=== PATIENT | male | born 1950 | race Caucasian/White ===

== ENCOUNTER → 2018-06-28 09:06 | Outpatient (CLI) | payer MEDICARE, SELFPAY ==
--- NOTE | 2018-06-28 09:17 | XR_ITS ---
XR chest 2V HISTORY: ITS.REASON: COUGH ORDERING PHYSICIAN: Roshan Everett MD PATIENT AGE: 68 years COMPARISON: 06/28/2018 FINDINGS: The cardiomediastinal silhouette and pulmonary vascularity are within normal limits. The left hemidiaphragm is slightly elevated. There is patchy density in the left lung base which could be due to atelectasis or infiltrate. The remaining lungs are clear. There are degenerative changes in the thoracic spine. IMPRESSION: Left basilar atelectasis versus patchy infiltrate with slightly elevated left hemidiaphragm
== END ==
PROVIDERS: PCP Family Medicine; Visit Provider Family Medicine
DX: R05 Cough (principal)
CPT/HCPCS: 71046

== ENCOUNTER → 2018-10-29 07:21 | Outpatient (CLI) | payer MEDICARE, SELFPAY ==
--- NOTE | 2018-10-29 07:28 | NM_ITS ---
SPECT MYOCARDIAL PERFUSION SCAN, REST AND STRESS: EXERCISE STRESS: [facility] REVIEW QGS EF AND WALL MOTION EVALUATION: QPS - PERFUSION EVALUATION: HISTORY: Chest pain, SOB, HTN PROCEDURE: Rest imaging performed after administration of10.76 millicuries Tc MIBI. Dose administered at7:40 a.m., with imaging thereafter. Stress imaging was then performed following7 minutes 15 seconds of exercise stress. The patient achieved a heart [id number] with projected heart rate of128 . Resting BP151/82 with stress 185/80. At maximum exercise stress,32.8 millicuries Tc MIBI administered at9:00 a.m. with [id number] minutes thereafter. FINDINGS: Perfusion Evaluation: The single slice spect images as well as the [facility] bull's-eye data summary were reviewed. Wall Motion and Ejection Fraction Evaluation: Gated SPECT review and analysis used to evaluate these features. There is a 58 % left ventricular ejection fraction. There seems to be good wall motion Stress images reveal decreased activity in the mid anterior apical wall septum and inferior wall. Is also decreased activity in a portion of the lateral wall. Rest images reveal no significant change. Gated images calculated ejection fraction of 58% with normal wall motion IMPRESSION: Clinical correlation is advised. There are multiple defects none of which appear to be reversible. I would consider this high risk abnormal based on the multiple perfusion defects suggesting multivessel coronary artery disease. Normal ejection fraction normal wall motion
--- NOTE | 2018-10-29 07:49 | HMH.ITSHM ---
Current Home Medications as stated by this patient Bacilio Downey or sales representative health insurance. []AMLODIPINE FENOFIBRATE ATORVASTATIN MELOXICAM BISOPROLOL
== END ==
PROVIDERS: PCP Family Medicine; Visit Provider Family Medicine
DX: I20.8 Other forms of angina pectoris (principal); E78.2 Mixed hyperlipidemia; I10 Essential (primary) hypertension
CPT/HCPCS: 78452; 93017; A9502

== ENCOUNTER → 2019-02-15 14:00 | Outpatient (CLI) | payer MEDICARE, SELFPAY ==
--- NOTE | 2019-02-15 14:09 | XR_ITS ---
XR chest 2V HISTORY: Cough for 2 weeks ITS.REASON: COUGH ORDERING PHYSICIAN: Roshan Everett MD PATIENT AGE: 68 years Technique: PA and lateral chest COMPARISON: 2 view chest 05/07/2010 and October 2007 FINDINGS:.. Compared to previous CXR study there is increased density at the left base is mainly reflects atelectasis and linear scarring and is associated with slight elevation left hemidiaphragm, biopsy suspect of a subtle additional superimposed infiltrate here eccentric in the markings at the left infrahilar region and towards the medial left lung base.. . There is slight additional hazy appearance at the medial right base compared to the prior study. Suspect for a subtle current wispy infiltrate at right lower lobe. The heart is normal to upper normal size. Progressive ectasia and tortuosity of the descending aorta. May reflect history of hypertension?. Minimal calcified aortic knob. Superior mediastinum unremarkable. Chest wall intact. Hypertrophic changes T spine stable. No pleural effusion. No CHF no vascular congestion. IMPRESSION 1. Interval scarring and atelectasis at left base with elevation left hemidiaphragm 2. However I'm suspect there may be a minimal superimposed infiltrate left base . Clinical correlation required. 3. Also note subtle, slightly more hazy appearance at medial right base versus prior CXR-. Question minimal wispy infiltrate RLL as well
== END ==
PROVIDERS: PCP Family Medicine; Visit Provider Family Medicine
DX: R05 Cough (principal)
CPT/HCPCS: 71046

== ENCOUNTER → 2019-12-17 11:06 | Outpatient (CLI) | payer MEDICARE, SELFPAY ==
[2019-12-17 13:04] LABS: Prostate Specific Ag Screen < 0.1 ng/mL (0.0-4.0)
== END ==
PROVIDERS: Visit Provider Urology
DX: R97.20 Elevated prostate specific antigen [PSA] (principal); Z12.5 Encounter for screening for malignant neoplasm of prostate
CPT/HCPCS: 36415; G0103

== ENCOUNTER → 2020-07-06 14:09 | Outpatient (CLI) | payer MEDICARE, SELFPAY ==
--- NOTE | 2020-07-06 14:11 | CA_ITS ---
APPROVED REPORT EXAM: Comprehensive 2D, Doppler, and color-flow Echocardiogram Armoring Machine Operator: Genesis Andrade CRT Ht: 6 ft 2 in Wt: 264lbs BSA: 2.45 BP: 142/80 mmHg Indications: Chest Pain, Shortness of Breath, Hyperlipidemia, Hypertension/HDD, myocardial bridge 2D Dimensions LVOT 2.20 cm (M/F) 1.5-2.5 M-Mode Dimensions RVDd 2.96 cm (0.9-2.6) LVDd 5.04 cm (3.5-5.7) LVDs 3.53 cm (3.5-5.7) IVSd 2.20 cm (0.6-1.1) PWd 1.02 cm (0.6-1.1) EF (Teich) 56.90% FS 30.00% EDV (Teich) 120.50 mL ESV (Teich) 51.90 mL LV Diastology E/A Ratio 0.75 Mitral Valve MV A Velocity 70.00 (40-130 cm/s) Left Ventricle Left atrium is mildly enlarged, left ventricle is normal size, mild concentric left ventricular hypertrophy, visually estimated ejection fraction 55% with no regional wall motion abnormality, grade 1 diastolic dysfunction seen without tissue Doppler evidence of raise left atrial pressure. Right Ventricle Right atrium and right ventricular mildly enlarged with normal contractility. Aortic Valve Aortic valve is minimally thickened and fibrosed, there is no aortic stenosis or aortic insufficiency. Mitral Valve Mitral valve is grossly normal, there is mild mitral regurgitation. Tricuspid Valve Tricuspid valve is grossly normal, there is mild tricuspid regurgitation, tricuspid regurgitation jet velocity is inadequate for calculation of the right ventricular systolic pressure. Pulmonic Valve Pulmonic valve is poorly visualized. Great Vessels Aortic root is normal size. Pericardium No significant pericardial effusion noted. Conclusion 1. Mild biatrial enlargement, normal left ventricular size, mild concentric left ventricular hypertrophy, visually estimated ejection fraction 55% with no regional wall motion abnormality, grade 1 diastolic dysfunction seen without tissue Doppler evidence of raise left atrial pressure. 2. Mildly enlarged right ventricle with normal contractility. 3. Mild mitral and tricuspid regurgitation. 4. No significant pericardial effusion noted. Electronically signed by : Horacio Ruano, 07/06/2020 19:11:47
== END ==
PROVIDERS: PCP Family Medicine; Visit Provider Nurse Practitioner Family
DX: R06.00 Dyspnea, unspecified (principal)
CPT/HCPCS: 93306

== ENCOUNTER → 2021-03-29 08:57 | Outpatient (CLI) | payer MEDICARE, SELFPAY ==
[2021-03-29 10:52] LABS: Prostate Specific Ag, Diagnost 0.094 ng/ml (0.0-4.0)
== END ==
PROVIDERS: Visit Provider Urology
DX: R97.20 Elevated prostate specific antigen [PSA] (principal)
CPT/HCPCS: 36415; 84153

== ENCOUNTER → 2022-02-15 12:06 | Outpatient (CLI) | payer MEDICARE, SELFPAY ==
--- NOTE | 2022-02-15 12:13 | XR_ITS ---
FINAL REPORT CLINICAL HISTORY: ACUTE PAIN OF RIGHT FOOT FINDINGS: RIGHT FOOT Three views demonstrate no acute fracture or dislocation. There are mild and moderate degenerative changes. Calcaneal spurs are identified. There are calcifications in the region of the distal Achilles tendon and posterior plantar aponeurosis. IMPRESSION: Degenerative changes as above. Calcification in the region of the distal Achilles tendon and posterior plantar aponeurosis. Reviewed, Interpreted and Dictated by Renaldo Christie III, MD Transcribed by Rosita Rivas Authenticated by Renaldo Christie III, MD on 02/15/2022 01:53:[address] [facility]
== END ==
PROVIDERS: PCP Family Medicine; Visit Provider Family Medicine
DX: M79.671 Pain in right foot (principal)
CPT/HCPCS: 73630

== ENCOUNTER 2024-05-29 09:57 | Outpatient (CLI) | payer MEDICARE, SELFPAY ==
[2024-05-29 10:33] LABS: Basophils # 0.1 K/mm3 (0-0.2); Basophils % 1.7 % (0.1-2.0); Eosinophils # 0.2 K/mm3 (0.0-0.4); Eosinophils % 5.5 % (0.1-12.0); Hematocrit 45.4 % (42.0-52.0); Hemoglobin 15.1 g/dL (14.1-18.0); Lymphocytes # 0.9 K/mm3 (0.7-4.5); Lymphocytes % 24.3 % (10-50); Mean Corpuscular HGB Conc 33.3 g/dL (31.8-35.4); Mean Corpuscular Hemoglobin 30.5 pg (27.0-31.2); Mean Corpuscular Volume 91.8 fl (80-94); Mean Platelet Volume 7.9 fl (7.4-10.4); Monocytes # 0.3 K/mm3 (0.1-1.0); Monocytes % 8.6 % (1.7-9.3); Neutrophils # 2.1 K/mm3 (1.8-7.8); Neutrophils % 59.9 % (37.0-80.0); Platelet Count 196 K/mm3 (142-424); Red Blood Count 4.94 M/mm3 (4.60-6.20); Red Cell Distribution Width 14.4 % (11.5-17.5); White Blood Count 3.5 K/mm3 (4.8-10.8)
[2024-05-29 11:06] LABS: Alanine Aminotransferase 35 U/L (12-78); Albumin Level 3.8 g/dl (3.5-5.0); Alkaline Phosphatase 81 U/L (38-126); Anion Gap 8.3 mEq/L (5-15); Aspartate Amino Transferase 36 U/L (17-59); Bilirubin,Indirect 0.7 mg/dL (0.0-0.9); Bilirubin,Total 0.7 mg/dl (0.2-1.3); Bilirubin,Unconjugated 0.7 mg/dL (0.0-1.1); Blood Urea Nitrogen 17 mg/dl (9-20); Calcium 9.1 mg/dl (8.4-10.2); Carbon Dioxide 26 mmol/L (22.0-30.0); Chloride 110 mmol/L (98-107); Chol/HDL Ratio 4.7 (1-3.5); Cholesterol 140 mg/dl (140-200); Estimated Glomerular Filt Rate 94 ml/min (>60); GFR (African American) 114 ML/MIN (>60); Glucose 90 mg/dl (74-100); HDL Cholesterol 30 mg/dl (40-60); Magnesium 2.2 mg/dl (1.6-2.3); Potassium 4.3 mmoL/L (3.5-5.1); Sodium 140 mmol/L (136-145); Total Protein,Serum 6.4 g/dl (6.3-8.2); Triglycerides 316 mg/dl (30-150); VLDL Cholesterol 63 mg/dL (0-40)
[2024-05-29 11:21] LABS: Free T4 (Free Thyroxine) 1.01 ng/dl (0.78-2.19)
[2024-05-29 11:38] LABS: Prostate Specific Ag Screen < 0.1 ng/ml (0.0-4.0); Thyroid Stimulating Hormone 2.35 uIU/mL (0.465-4.68)
== END 2024-05-29 23:59 | disposition home or self-care (01) ==
LOC: LAB 09:59
PROVIDERS: PCP Family Medicine; Visit Provider Nurse Practitioner Family
DX: I51.89 Other ill-defined heart diseases; I10 Essential (primary) hypertension; R06.00 Dyspnea, unspecified; E78.2 Mixed hyperlipidemia; R60.9 Edema, unspecified; Q24.5 Malformation of coronary vessels; I34.0 Nonrheumatic mitral (valve) insufficiency; Z12.5 Encounter for screening for malignant neoplasm of prostate
CPT/HCPCS: 36415; 80048; 80061; 80076; 83735; 84439; 84443; 85025; G0103

== ENCOUNTER 2024-06-04 07:24 | Outpatient (CLI) | payer MEDICARE, SELFPAY ==
--- NOTE | 2024-06-04 07:24 | NM_ITS ---
APPROVED REPORT Exam: Nuclear Stress Test Indication: SOB, HTN, High cholesterol Patient Location: Outpatient Stress Tech: Alissa Pandey [place] Tech:Erika Chance, ARRT, RT (R)(N) Ht: 6 ft 2 in Wt: 260 lbs HR: 59 bpm BP: 142/83 mmHg BSA: 2.43 m2 Rhythm: NSR TID: 1.12 BMI: 33.3 History: SOB, HTN, High cholesterol Procedure: Patient exercised on Martin protocol 7:57 minutes and sec, resting heart rate 59 bpm, resting blood pressure 142/83 mmHg, with exercise maximum heart rate achived was 124 bpm which is 86 % of the maximum predicted heart rate and blood pressure was 178/84 mmHg. Test was stopped due to SOB. Patient denied any complaint of chest pain. Patient has average exercise capacity, achieved 8.8 METs of workload on treadmill, the blood pressure response to exercise was normal. Cardiac Stress and Resting SPECT Images: Cardiac Stress and Resting SPECT images were obtained using technetium 99m Myoview 31.4 mCi stress and 10.61 mCi at rest. Raw images demonstrate significant diaphragmatic overlap with the inferior borders of the LV wall. The patient could not lie on his abdomen. Therefore, prone stress imaging could not be performed. This may affect the diagnostic interpretation of the study findings. Resting and stress imaging in supine positions demonstrate no fixed or reversible perfusion defects. Gated imaging demonstrates normal global and regional LV systolic function. LVEF is calculated at 56%. Conclusion: No fixed or reversible perfusion defects. Gated imaging demonstrates normal global and regional LV systolic function. LVEF is calculated at 56%. Electronically signed by : Catherine Pacheco MD 06/04/2024 12:35:23
--- NOTE | 2024-06-04 07:43 | CA_ITS ---
APPROVED REPORT EXAM: Comprehensive 2D, Doppler, and color-flow Echocardiogram Plug And Mold Finisher: LAURA Martienz, RVS Ht: 6 ft 2 in Wt: 270lbs BSA: 2.47 BP: 129/71 mmHg Indications: Dyspnea, Myocardial bridge, Tachycardia, HTN, HLD, VALENTINE Echo Enhancing Agent Comments: TDS due to body habitus 2D Dimensions IVSd 1.12 cm LVEF (Visual) 68.40 % PWd 1.34 cm LVEF ([facility]) 60.10 % LVDd 5.30 cm LV Volume 124.30 mL LVDs 3.26 cm LV Volume Index 50.783875 mL/m2 M: 34 - 74 Aortic Root 3.20 cm LA Volume 79.80 mL Left Atrium 3.78 cm LA Volume Index 32.291112 mL/m2 (M/F) 16-34 RVID Base (AP4) 4.17 cm (M/F) 2.5-4.1 EF AP4 57.90 % LVOT 2.06 cm (M/F) 1.5-2.5 EF AP2 62.1 % EF BP 60.1 % GL Strain -21.3 % M-Mode Dimensions LVDd 5.30 cm (3.5-5.7) Ao Diam 3.70 cm (2.0-3.7) LVDs 4.06 cm (3.5-5.7) IVSd 1.12 cm (0.6-1.1) PWd 1.34 cm (0.6-1.1) EF (Teich) 50.80% EPSs 0.23 cm FS 30.30% EDV (Teich) 147.40 mL TAPSE 2.60 (<1.7) ESV (Teich) 72.50 mL LV Diastology E Decel Time 236 (160-240 msec) E/A Ratio 1.12 MED E' 5.6 (>= 7 cm/sec) MED A' 10.30 cm/s E'/MED E' Ratio 12.36 (<= 14) LAT E' 8.3 (>= 10 cm/sec) LAT A' 15.30 cm/s E/LAT E' Ratio 8.34 (<= 14) Aortic Valve LVOT Max 124.0 (70-110 cm/s) HEMA Index 1.31 cm2/m2 LVOT VTI 28.10 cm AoV Peak Mike. 145.0 (50-130 cm/s) AO Mean GR. 4.20 (<5 mmHg) AO VTI 29.0 (18-25 cm) HEMA (VTI) 3.23 (2.5-4.5 cm2) Mitral Valve MV E Max Mike. 69.0 (40-130 cm/s) MV A Velocity 62.0 (40-130 cm/s) E/A Ratio 1.12 MV Decel. Time 236 (160-240 ms) Tricuspid Valve TR P. Velocity 268.00 cm/s RAP Estimate 10.00 mmHg RVSP 38.70 mmHg Left Ventricle The left ventricle is normal size. The left ventricular systolic function is normal. The left ventricular ejection fraction is within the normal range. There is increased LV wall thickness. There is normal LV segmental wall motion. The left ventricular diastolic function is normal. LVEF is 55%. Right Ventricle Right ventricle is mildly dilated. The right ventricular systolic function is normal. Atria Left atrium is mildly dilated. Right atrium is mildly dilated. There is no Doppler evidence of interatrial shunt. Aortic Valve The aortic valve is mildly thickened. There is no aortic valvular stenosis. Trace aortic regurgitation. Mitral Valve Mild mitral annular calcification. The mitral valve is normal in structure. No evidence of mitral valve stenosis. Trace mitral regurgitation. Tricuspid Valve The tricuspid valve leaflets are thin and pliable. Mild tricuspid regurgitation. RVSP is 20-25 mmHg. Pulmonic Valve The pulmonary valve is normal in structure. Trace pulmonic regurgitation. Great Vessels The aortic root is normal in size. The ascending aorta is not well-visualized. IVC is normal in size and collapses >50% with inspiration. Pericardium There is no pericardial effusion. Other Information Study Quality: Fair Conclusion Normal biventricular systolic function. Mild RV dilation. Mild TR. Electronically signed by : Catherine Pacheco MD 06/04/2024 13:32:30
--- NOTE | 2024-06-04 09:41 | CA_ITS ---
APPROVED REPORT Exam: Exercise Treadmill Technologist: Alissa Pandey Ht: 6 ft 2 in Wt: 269 lbs BSA: 2.47 m2 HR: 55 bpm BP: 142/83 mmHg Indications: Dyspnea, Edema Medical History Medications: Lipitor,,,,, Norvasc,,,,, MeLOXICAM,,,,, BisOPROLOL,,,,, Nitroglycerin,,,,, Stress Test Details Test: Manual Treadmill HR Resting HR: 59 bpm Max Heart Rate (APMHR): 145 bpm Max HR Achieved: 124 bpm Target HR (85% APMHR): 123 bpm % of APMHR: 86 Recovery HR: 77 bpm HR response to stress: Normal HR response to stress BP Resting BP: 142.0/83.0 mmHg Max BP: 178.0/84.0 mmHg Recovery BP: 168.0/85.0 mmHg BP response to stress: Normal blood pressure response to stress. ECG Resting ECG: Sinus bradycardia Stress EC.[address] depression Arrhythmia: None Recovery ECG: Return to baseline within 3 minutes of recovery Clinical Exercise duration: 07:57 min Highest Stage Achieved: Exercise capacity: 8.8 METs Overall Exercise Capacity for Age: Average Stress ECG Conclusion The patient was able to exercise for a total of 7 minutes, 57 seconds. He achieved a total of 8.8 METS. He has average exercise capacity compared to age and sex matched peers. Symptoms: Dyspnea Arrhythmias/Ectopy: None ST-T Changes: 0.[address] depression Conclusion: Average exercise capacity. Normal EKG response to exercise. Myoview images reported separately. Test Summary REST . . . . . . . Sitting REST . . . . . . . Standing REST 05:33 0.0 0.0 59 . 142/ 83 . . Stage 1 01:00 10.0 1.7 82 . . . . Stage 1 02:00 10.0 1.7 90 . . . . Stage 1 03:00 10.0 1.7 91 . 150/ 86 . . Stage 2 01:00 12.0 2.5 99 . . . . Stage 2 02:00 12.0 2.5 103 . . . . Stage 2 . . . . . . . Myoview Injected Stage 2 03:00 12.0 2.5 93 . . . . Stage 3 . . . . . . . Stage held Stage 3 . . . . . . . Protocol changed to Manual Treadmill Stage 3 01:00 14.0 2.9 111 . . . . Stage 3 . . . . . . . Stage resumed Stage 3 01:57 14.0 2.9 114 . . . Stop exercise at 07:57 RECOVERY 01:00 0.0 0.0 93 . 178/ 84 . . RECOVERY 02:00 0.0 0.0 77 . 173/ 80 . . RECOVERY 03:00 0.0 0.0 80 . 173/ 80 . . RECOVERY 03:20 0.0 0.0 77 . 168/ 85 . . Electronically signed by : Catherine Pacheco MD 06/04/2024 12:32:55
== END 2024-06-04 23:59 | disposition home or self-care (01) ==
LOC: RAD 07:24
PROVIDERS: PCP Family Medicine; Visit Provider Nurse Practitioner Family
DX: R06.00 Dyspnea, unspecified (principal); R60.9 Edema, unspecified; I34.0 Nonrheumatic mitral (valve) insufficiency; I07.1 Rheumatic tricuspid insufficiency
CPT/HCPCS: 78452; 93017; 93018; 93306; A9502